=== PATIENT | male | born 1935 ===

== ENCOUNTER 2025-08-14 09:01 | Outpatient (REF) | payer BC, SELFPAY ==
[2025-08-14 13:44] LABS: Appearance Urine Clear; Glucose Urine UA >=1000 mg/dL (Negative); PH 6.0 (5.0-9.0); Specific Gravity - Urine >= 1.030 (1.005-1.025); UMIC TRIGGER UACC YES
[2025-08-14 13:56] LABS: MANUAL DIFF FLAG NO
[2025-08-14 14:01] LABS: Hematocrit 38.1 % (42.0-52.0); Hemoglobin 11.9 g/dl (14.0-18.0); Imm Gran Abs Auto 0.02 X10*3/uL (0.00-0.03); Imm Gran Pct Auto 0.2 % (0.0-0.4); Lymphocytes Absolute Auto 2.2 X10*3/uL (1.2-4.9); Mean Corpuscular HGB Conc 31.2 g/dl (31.0-36.0); Mean Corpuscular Hemoglobin 29.0 pg (27.0-33.0); Mean Corpuscular Volume 92.9 fL (80.0-98.0); NRBC Abs Auto 0.000 X10*3/uL (0.0-0.012); NRBC Pct Auto 0.0 /100WBC (0.0-0.2); Platelet Count 295 X10*3/uL (160-400); Red Blood Count 4.10 X10*6/uL (4.60-5.80); UACC Culture Trigger YES; White Blood Count 8.3 X10*3/uL (4.8-10.8)
[2025-08-14 14:12] LABS: Alanine Aminotransferase 41 U/L (0-40); Albumin Level 4.6 g/dL (3.5-5.0); Alkaline Phosphatase 61 U/L (39-117); Anion Gap 10 (12-20); Aspartate Amino Transferase 32 U/L (5-37); Blood Urea Nitrogen 23 mg/dL (9-16); Calcium 9.7 mg/dL (8.4-10.2); Carbon Dioxide 27 mmol/L (22-29); Chloride 115 mmol/L (96-108); Cholesterol 149 mg/dL (<200); Estimated Glomerular Filt Rate 47; HDL Cholesterol 44 mg/dL (>40); Magnesium 2.3 mg/dL (1.6-2.6); Potassium 4.1 mmol/L (3.3-5.1); Sodium 148 mmol/L (135-145); Total Protein 8.5 g/dL (6.5-8.0); Triglycerides 75 mg/dL (<150)
[2025-08-14 14:48] LABS: Hemoglobin A1C 150.3702 umol/L
[2025-08-14 14:49] LABS: Folate 9.1 ng/mL (> or = 4.0); Vitamin B12 424 pg/mL (200-900)
[2025-08-15 03:33] LABS: HBS Num1 1.01 mIU/mL (0-7.99); HBsAGNum1 0.43 S/CO (0.00-0.99); HIV Num 1 0.15 S/CO (0.00-0.99); Hepatitis B Surface Antigen Negative (Negative); ~HepC Num1 0.10 S/CO (0.00-0.79); ~Hepatitis B Surface Antibody NONREACTIVE (Nonreactive); ~Hepatitis C Antibody Nonreactive (Nonreactive)
[2025-08-18 14:04] LABS: VITAMIN D (1,25 OH) D3 22 pg/mL; Vit D (1,25-Dihydroxy) Total 22 pg/mL (18-72); Vitamin D (1,25 OH) D2 <8 pg/mL
== END 2025-08-14 09:02 | disposition home or self-care (01) ==
LOC: HO.HKASLDS 09:01
PROVIDERS: PCP Student in an Organized Health Care Education/Training Program; Visit Provider Student in an Organized Health Care Education/Training Program
DX: E11.40 Type 2 diabetes mellitus with diabetic neuropathy, unspecified (principal); G30.9 Alzheimer's disease, unspecified; F02.80 Dementia in other diseases classified elsewhere, unspecified severity, without behavioral disturbance, psychotic disturbance, mood disturbance, and anxiety; N40.0 Benign prostatic hyperplasia without lower urinary tract symptoms; K64.9 Unspecified hemorrhoids; E03.9 Hypothyroidism, unspecified; L60.2 Onychogryphosis; L85.8 Other specified epidermal thickening; R63.4 Abnormal weight loss; R63.0 Anorexia; K64.4 Residual hemorrhoidal skin tags; F05 Delirium due to known physiological condition; E53.8 Deficiency of other specified B group vitamins; Z85.038 Personal history of other malignant neoplasm of large intestine
CPT/HCPCS: 36415; 80053; 80061; 81001; 82607; 82652; 82746; 83036; 83735; 84443; 85025; 86706; 86803; 87086; 87340; 87389; 96127

== ENCOUNTER 2025-08-14 09:01 | Outpatient (AMB) | payer BC, SELFPAY ==
--- NOTE | 2025-08-14 09:23 | A.OFFPC_ITS ---
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: No Accompanied by: Daughter Allergies No Known Allergies Allergy (Verified 08/14/25 09:42) Tobacco use date assessed: 08/14/25 Fall risk assessment: No Falls in past year Dental Screening Dental Screen Date: 08/14/25 Did you have a dental visit in the last 12 months?: Yes Did you have a dental problem in the last 6 months where you did not have access to dental care?: Yes Was dental information given to patient?: Patient has dentist HPI HPI Comments History of Present Illness Details Consent Patient was informed and verbally consented to the use of an ambient scribe for clinic note documentation during this visit. History of Present Illness The patient is an 89-year-old male presenting with the primary reason for the visit being to establish care and manage chronic conditions including Alzheimer's disease, Type 2 Diabetes Mellitus, and dementia. Alzheimer's disease: Alzheimer's disease has been a gradual onset condition, associated with age, and has not been linked to any strokes. The patient was previously under the care of a neurologist in [place], consider neurology referral Type 2 Diabetes Mellitus: The patient has a history of Type 2 Diabetes Mellitus, managed with medications including Jardiance and Janumet. Peripheral neuropathy has developed as a complication of diabetes, increasing the risk for diabetic foot ulcers. Dementia: Dementia has been a progressive condition, with symptoms of confusion particularly noted in the evening, indicative of sundowning syndrome. The patient experiences significant nocturnal confusion, requiring assistance to return to bed. History of colon cancer: The patient underwent chemotherapy and radiation therapy for colon cancer approximately four to five years ago, with no surgical intervention reported. Benign prostatic hyperplasia: The patient is on tamsulosin for benign prostatic hyperplasia, following a previous episode requiring catheterization due to urinary retention. Peripheral neuropathy: Peripheral neuropathy is present, more pronounced on the right foot, and is a complication of diabetes. External hemorrhoid: An external hemorrhoid was identified during the examination, with consideration for potential in-office banding or referral to gastroenterology for further management. Medications: - Jardiance for Type 2 Diabetes Mellitus - Janumet for Type 2 Diabetes Mellitus - Donepezil for Alzheimer's disease - Tamsulosin for benign prostatic hyperp lasia - Levothyroxine for thyroid management - Madison-3 supplements - Quetiapine for mood stabilization - Trazodone for sleep aid - Vitamin C supplement Social History: - The patient was a former drinker but h as no history of smoking. - The patient is encouraged to walk with a cane and avoid prolonged sitting to prevent skin ulcers. - The patient receives sunlight exposure for vitamin D and is encouraged to remain active. Review of Systems - Neurological: Reports confusion and no cturnal disorientation, particularly in the evening. - Gastrointestinal: Reports blood on tis sachi, likely due to hemorrhoid. 10-point ROS reviewed and negative excep t as noted in HPI Past Medical History - Alzheimer's disease - Type 2 Diabetes Mellitus - Dementia - History of colon cancer, treated with chemotherapy and radiation - Benign prostatic hyperplasia - Peripheral neuropathy Health Maintenance - Encouraged to maintain physical activi ty to prevent skin ulcers and promote overall health. - Sunlight exposure recommended for cynthia min D synthesis. Physical Exam General: Well-appearing, in no acute distress. Vital signs: Within normal limits. HEENT: Normocephalic, atraumatic. PERRLA, EOMI. Conjunctiva clear, sclera anicteric. Oropharynx clear, mucous membranes moist. TMs intact bilaterally. Neck: Supple, no lymphadenopathy, no thyromegaly, no JVD or carotid bruits. Cardiovascular: RRR, normal S1/S2, no murmurs, rubs, or gallops. Peripheral pulses 2+ and symmetric. No edema. Respiratory: Lungs clear to auscultation bilaterally, no wheezes, rales, or rhonchi. Normal effort. Abdomen: Soft, non-tender, non-distended. Normoactive bowel sounds. No hepatosplenomegaly, no masses. MSK: Full range of motion, no joint swelling or deformity. Normal gait. Uses a cane for walking, granddaughter provided a wheelchair, but prefers to walk to avoid prolonged sitting. Skin: Warm, dry, intact. No rashes, lesions, or pallor. Toenails difficult to cut, referral to podiatry made. Band-Aid on toe due to a stubbed toe. Neuro: Alert and oriented x3. Cranial nerves II-XII intact. Strength 5/5 throughout. Sensation intact. Reflexes 2+ symmetric. Normal coordination and gait. Peripheral neuropathy noted due to diabetes. Psych: Appropriate mood and affect. Normal judgment and insight. Plan 1. Alzheimer's Disease - Continue current management with donep ezil and monitor cognitive function. mini cog performed scored less than 3 2. Type 2 Diabetes Mellitus - Order lab tests including hemoglobin A 1c to assess glycemic control. - Adjust medications based on lab result s and clinical assessment. 3. Dementia - Monitor for progression of symptoms an d adjust care as needed. 4. History Of Colon Cancer - No current oncological follow-up requi red as per previous assessments. 5. Benign Prostatic Hyperplasia - Evaluate the necessity of continuing t amsulosin based on urinary symptoms. 6. Peripheral Neuropathy - Monitor for signs of diabetic foot ulc ers and educate on foot care. 7. External Hemorrhoid - Consider referral to gastroenterology for potential in-office banding procedure. 8. Hypothyroid Continue current medication check TSH free T4 levels Discussion Notes During the visit, we discussed the management of the patient's chronic conditions, including Alzheimer's dementia, Type 2 Diabetes Mellitus, I explained the importance of monitoring blood glucose levels and adjusting medica tions based on lab results. We also talked about the potential need for gastroenterology referral for hemorrhoid management. The patient and caregiver were advised on the importance of maintaining physical activity and sunlight exposure for overall health. Patient Instructions - Continue current medications as prescr ibed. - Maintain physical activity and avoid p rolonged sitting to prevent skin ulcers. - Ensure regular sunlight exposure for v itamin D. - Monitor blood glucose levels as advise d. - Follow up in two weeks for lab results and medication review. Medical Decision Making In managing this patient, I focused on the chronic conditions of Alzheimer's disease, Type 2 Diabetes Mellitus, and dementia. The goal is to maintain cognitive function and glycemic control while preventing complications such as diabetic foot ulcers. I decided to order comprehensive lab tests to guide medication adjustments and consider a gastroenterology referral for hemorrhoid management. The patient's age and overall health were considered in the decision-making process, emphasizing non-invasive management strategies where possible. Total time spent caring for the patient today was 30 minutes. This includes time spent before the visit reviewing the chart, time spent documenting, and time spent reviewing laboratory results, diagnostic imaging, medications, performing a medically necessary evaluation, counseling on diagnoses, care coordination, ordering appropriate tests, ordering appropriate medications. [facility] Medical History (Updated 08/14/25 @ 11:50 by Valdemar Martinez MD) Weight loss Decreased appetite Hemorrhoids Subungual hyperkeratosis Onychauxis Family History (Updated 08/14/25 @ 09:24 by Iván Enriquez MA) Father No problems noted. Mother No problems noted. Social History Housing: House Patient Tobacco Use Status: Never used Tobacco service: No Current occupational status: retired Cognitive needs: Yes Hearing needs: No Vision needs: Yes (reading glasses) Questionnaire PHQ-9 Over the last 2 weeks, how often have you been bothered by any of the following problems? 1. Little interest or pleasure in doing things: not at all 2. Feeling down, depressed, or hopeless: not at all 3. Trouble falling or staying asleep, or sleeping too much: not at all 4. Feeling tired or having little energy: more than half the days 5. Poor appetite or overeating: not at all 6. Feeling bad about yourself - or that you are a failure or have let yourself or your family down: not at all 7. Trouble concentrating on things, such as reading the newspaper or watching television: not at all 8. Moving or speaking so slowly that other people could have noticed. Or the opposite - being so fidgety or restless that you have been moving around a lot more than usual: several days 9. Thoughts that you would be better off or of hurting yourself in some way: not at all Total score: 3 Source: Developed by Drs. Juan Henderson, Peggy Guajardo, Steve Rashid and colleagues, with an educational blake from [employer]. Thrive Questionnaire Date Thrive assessed: 08/13/25 I am a: Patient What is your living situation today?: I have a steady place to live Within the past 12 months, did the food you bought not last and you didn't have the money to get more?: Never true Within the past 12 months, did you worry whether your food would run out before you got money to buy more?: Never true Do you have trouble paying for medicines?: No Do you have trouble getting transportation to medical appointments?: No Do you have trouble paying your heating and electricity bill?: No Do you have trouble with day-to-day activities such as bathing, preparing meals, shopping, managing finances, etc.?: No Are you currently unemployed and looking for a job?: No Are you interested in more education?: No Please select the resources that you would like help with: None Currently or been in a relationship where the following occur: No concerns reported THRIVE Score: 0 AUDIT C Alcohol Use Questionnaire (AUDIT-C) 1. How often do you have a drink containing alcohol?: Never 2. How many drinks containing alcohol do you have on a typical day when you are drinking?: 1 or 2 3. How often do you have six or more drinks on one occasion?: Never Total Score: 0 JOSEF-7 AMB Questionnaire JOSEF-7 Date JOSEF - 7 assessed: 08/14/25 Feeling nervous, anxious, or on edge: 0 = Not at all Not being able to stop or control worryin = Not at all Worrying too much about different things: 0 = Not at all Trouble relaxin = Not at all Being so restless that it is hard to sit still: 0 = Not at all Becoming easily annoyed or irritable: 0 = Not at all Feeling afraid as if something awful might happen: 0 = Not at all Total JOSEF-7 score (0-4 normal; 5-9 mild; 10-14 moderate; 15-21 severe): 0 Source: Developed by Drs. Juan Henderson, Peggy Guajardo, Steve Rashid and colleagues, with an educational blake from [employer]. Physical exam (Primary Care) Vital Signs: Last Vital Signs Temp 97.8 F 08/14/25 09:40 Pulse 74 08/14/25 09:40 Resp 16 08/14/25 09:40 BP 126/60 08/14/25 09:40 BMI result Body Mass Index 20.5 Tobacco/Smoking Status: Tobacco use Status Tobacco use date assessed 08/14/25 08/14/25 09:24 Patient Tobacco Use Status Never used Tobacco 08/14/25 09:24 PHQ-9: PHQ-9 Score PHQ-9: Total score 3 08/14/25 09:24 Thrive Assessment: Date of Thrive Assessment Date Thrive assessed 08/13/25 08/14/25 09:24 Currently or been in a relationship where the following occur: No concerns r eported Coding Level of Care Code New Pt Level 4 (53125) Diagnoses Alzheimer's dementia G30.9; F02.80 Diabetes type 2 E11.9 Hypothyroid E03.9 Peripheral neuropathy G62.9 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 Hemorrhoids K64.9 Weight loss R63.4 Decreased appetite R63.0 History of colon cancer Z85.038 Benign prostatic hyperplasia N40.0 External hemorrhoid K64.4 Sundowning F05 Sleep difficulties G47.9 Assessment & Plan Assessment & Plan (1) Alzheimer's dementia: Code(s): G30.9 - Alzheimer's disease, unspecified; F02.80 - Dementia in other diseases classified elsewhere, unspecified severity, without behavioral disturbance, psychotic disturbance, mood disturbance, and anxiety (2) Diabetes type 2: Code(s): E11.9 - Type 2 diabetes mellitus without complications (3) Hypothyroid: Code(s): E03.9 - Hypothyroidism, unspecified (4) Peripheral neuropathy: Code(s): G62.9 - Polyneuropathy, unspecified (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: Medical (6) Subungual hyperkeratosis: Code(s): L85.8 - Other specified epidermal thickening Category: Medical (7) Hemorrhoids: Code(s): K64.9 - Unspecified hemorrhoids Category: Medical (8) Weight loss: Code(s): R63.4 - Abnormal weight loss Category: Medical (9) Decreased appetite: Code(s): R63.0 - Anorexia Category: Medical (10) History of colon cancer: Code(s): Z85.038 - Personal history of other malignant neoplasm of large intestine (11) Benign prostatic hyperplasia: Code(s): N40.0 - Benign prostatic hyperplasia without lower urinary tract symptoms (12) External hemorrhoid: Code(s): K64.4 - Residual hemorrhoidal skin tags (13) Sundowning: Code(s): F05 - Delirium due to known physiological condition (14) Sleep difficulties: Code(s): G47.9 - Sleep disorder, unspecified Plan Orders: Orders Comprehensive Met. Panel Today Z13.9 - Encounter for screening, unspecified Hemoglobin A1c Today Z13.9 - Encounter for screening, unspecified Hepatitis B Surface Antibody Today Z13.9 - Encounter for screening, unspecified HIV Ab/Ag Today Z13.9 - Encounter for screening, unspecified Lipid Panel Today Z13.9 - Encounter for screening, unspecified Magnesium Today Z13.9 - Encounter for screening, unspecified TSH reflex Free T4 Today Z13.9 - Encounter for screening, unspecified UA CC w/rflx Micro + Cult Today Z13.9 - Encounter for screening, unspecified Vitamin B12 and Folate Today Z13.9 - Encounter for screening, unspecified Complete Blood Count Auto Diff Today Z13.9 - Encounter for screening, unspecified Hepatitis B Surface Antigen Today Z13.9 - Encounter for screening, unspecified Hepatitis C Antibody Today Z13.9 - Encounter for screening, unspecified Vitamin D 1,25 dihydroxy Today Z13.9 - Encounter for screening, unspecified Referrals Nurse Navigator Referral R63.0 - Anorexia, R63.4 - Abnormal weight loss Gastroenterology Referral K64.9 - Unspecified hemorrhoids Podiatry Referral L60.2 - Onychogryphosis, L85.8 - Other specified epidermal thickening
[2025-08-14 09:40] VITALS: BP 126/60; PULSE 74; RESP 16; TEMP 36.6; BMI 20.5
== END 2025-08-14 10:58 | disposition home or self-care (01) ==
LOC: HO.HMCFMS 09:02
PROVIDERS: PCP Student in an Organized Health Care Education/Training Program; Visit Provider Student in an Organized Health Care Education/Training Program
DX: E11.42 Type 2 diabetes mellitus with diabetic polyneuropathy (principal); G30.9 Alzheimer's disease, unspecified; F02.80 Dementia in other diseases classified elsewhere, unspecified severity, without behavioral disturbance, psychotic disturbance, mood disturbance, and anxiety; G62.9 Polyneuropathy, unspecified; E03.9 Hypothyroidism, unspecified; L60.2 Onychogryphosis; L85.8 Other specified epidermal thickening; K64.9 Unspecified hemorrhoids; R63.4 Abnormal weight loss; R63.0 Anorexia; Z85.038 Personal history of other malignant neoplasm of large intestine; N40.0 Benign prostatic hyperplasia without lower urinary tract symptoms

== ENCOUNTER 2025-08-28 12:59 | Outpatient (AMB) | payer BC, SELFPAY ==
--- NOTE | 2025-08-28 13:02 | MHC.PC.OV ---
Vital Signs 08/28/25 13:10 Height 5 ft 4.57 in Weight 123 lb 4 oz BMI 20.8 BP 121/56 L Blood Pressure Location Lt brachial Position Sitting Respiration 14 Pulse 97 Pulse Source Monitor Temp 97.4 F Temp Source Oral Pulse Oximetry (%) 98 Oxygen Delivery Method Room Air Intake Visit Reasons: 2 wk f/u Intake Note: 2 wk f/u Athletic Instructor Required: No Accompanied by: son in law Allergies No Known Allergies Allergy (Verified 08/14/25 09:42) Tobacco use date assessed: 08/14/25 Fall risk assessment: 2 + Falls in past year Last assessed Fall Risk: 08/28/25 Dental Screening Dental Screen Date: 08/14/25 HPI HPI Comments History of Present Illness Details History of Present Illness The patient is an 89-year-old male presenting for a follow-up to review comprehensive lab test results. Type 2 Diabetes Mellitus: The patient was newly diagnosed with type 2 diabetes mellitus following lab results that indicated a hemoglobin A1c of 6.5% and a random glucose of 156 mg/dL. He is currently managed on oral diabetic medications, including Jardiance and Janumet. He does not report any acute diabetic symptoms and exercises fairly good glycemic control, as indicated by the lab results. Chronic Kidney Disease, Stage 3A: The patient's chronic kidney disease is classified as stage 3A, with an estimated GFR of 47 mL/min/1.73 m?? and an elevated creatinine of 1.43 mg/dL. The patient has known diabetes which could contribute to the progression of his renal disease. History includes discussions of potential renal impacts related to diabetes management, but he currently does not report symptoms directly attributable to renal dysfunction. Normocytic Anemia: Recorded laboratory findings indicated low RBC count, hemoglobin, and hematocrit, potentially due to chronic blood loss from hemorrhoids. Although there are no overt signs of acute blood loss, the anemia is suggested to be longstanding. The anemia was previously unmanaged due to constipation issues with prior iron supplementation. Vitamin D Deficiency: Recent lab results revealed mildly low vitamin D levels. Although the patient remains asymptomatic from the deficiency perspective, a supplement has been discussed to prevent further drop and related conditions. Hemorrhoids: Patient has a known history of hemorrhoids, for which a gastroenterology referral has been provided. Previous bleeding patterns due to hemorrhoids possibly contribute to his chronic anemia, as discussed. Surgical History: - Routine surgical procedures, if any, are not documented in the current records. Medications: - Jardiance (empagliflozin) for type 2 diabetes mellitus - Janumet (combination of metformin and sitagliptin) for type 2 diabetes mellitus - Donepezil for cognitive impairment - Tamsulosin for benign prostatic hyperplasia - Levothyroxine for thyroid function - [place]-3 supplements - Quetiapine for mood stabilization - Trazodone for sleep disturbances - Vitamin C with iron supplementation plan Social History: - No significant social determinants of health discussed during this visit. Family History: - Presence of chronic kidney disease in the patient???s spouse Diagnostic Results: - Labs: Hemoglobin A1c at 6.5%, Creatinine 1.43 mg/dL, BUN 23 mg/dL, eGFR 47, Sodium 148 mmol/L, ALT 41 U/L, Vitamin D mildly low, WBC normal, RBC low, Hemoglobin low, Hematocrit low, MCV normal. - Tests and Diagnostics: Negative screenings for Hepatitis B, Hepatitis C, and HIV. Elevated glucose, leukocyte esterase and RBCs noted in urinalysis. Past Medical History - Type 2 Diabetes Mellitus - Chronic Kidney Disease, Stage 3A - Normocytic anemia - Hemorrhoids - Possible Vitamin D deficiency Health Maintenance - Updated labs including CBC, CMP, Lipid panel, and thyroid studies - Screening and negative tests for Hepatitis B, Hepatitis C, and HIV - Discussion of cardiovascular risk management including initiation of statin. [facility] Medical History (Updated 08/28/25 @ 15:23 by Valdemar Martinez MD) Dementia Vitamin D3 deficiency Normocytic anemia Kidney disease, chronic, stage III (GFR 30-59 ml/min) Diabetes type 2 Weight loss Decreased appetite Hemorrhoids Subungual hyperkeratosis Onychauxis Family History Father No problems noted. Mother No problems noted. Social History Housing: House Patient Tobacco Use Status: Never used Tobacco service: No Current occupational status: retired Cognitive needs: Yes Hearing needs: No Vision needs: Yes (reading glasses) Questionnaire Thrive Questionnaire Date Thrive assessed: 08/13/25 I am a: Patient What is your living situation today?: I have a steady place to live Within the past 12 months, did the food you bought not last and you didn't have the money to get more?: Never true Within the past 12 months, did you worry whether your food would run out before you got money to buy more?: Never true Do you have trouble paying for medicines?: No Do you have trouble getting transportation to medical appointments?: No Do you have trouble paying your heating and electricity bill?: No Do you have trouble taking care of your child, family member or friend?: No Do you have trouble with day-to-day activities such as bathing, preparing meals, shopping, managing finances, etc.?: No Are you currently unemployed and looking for a job?: No Are you interested in more education?: No Please select the resources that you would like help with: None Currently or been in a relationship where the following occur: No concerns reported THRIVE Score: 0 JOSEF-7 AMB Questionnaire JOSEF-7 Date JOSEF - 7 assessed: 08/14/25 Source: Developed by Drs. Juan Henderson, Peggy Guajardo, Steve Rashid and colleagues, with an educational blake from [email or web address]. Review of Systems Narrative Review of Systems - Hematologic: Denies spontaneous or unexplained bleeding. - Renal: Reports no urinary changes but acknowledges known chronic kidney disease. - Endocrine: Denies acute symptoms of hyper- or hypoglycemia; Admits to stable management of diabetes. - Musculoskeletal: Denies musculoskeletal pain or weakness. - Neurological: Denies dizziness, seizures or other neurological symptoms. 10-point ROS reviewed and negative except as noted in HPI Physical exam (Primary Care) Vital Signs: Last Vital Signs Temp 97.4 F 08/28/25 13:10 Pulse 97 08/28/25 13:10 Resp 14 08/28/25 13:10 BP 121/56 L 08/28/25 13:10 Pulse Ox 98 08/28/25 13:10 Oxygen Delivery Method Room Air 08/28/25 13:10 BMI result Body Mass Index 20.8 Tobacco/Smoking Status: Tobacco use Status Tobacco use date assessed 08/14/25 08/28/25 13:03 Patient Tobacco Use Status Never used Tobacco 08/28/25 13:03 Thrive Assessment: Date of Thrive Assessment Date Thrive assessed 08/13/25 08/28/25 13:03 Currently or been in a relationship where the following occur: No concerns reported Narrative Physical Exam General: Well-appearing, in no acute distress. Vital signs: Within normal limits. HEENT: Normocephalic, atraumatic. PERRLA, EOMI. Conjunctiva clear, sclera anicteric. Oropharynx clear, mucous membranes moist. TMs intact bilaterally. Neck: Supple, no lymphadenopathy, no thyromegaly, no JVD or carotid bruits. Cardiovascular: RRR, normal S1/S2, no murmurs, rubs, or gallops. Peripheral pulses 2+ and symmetric. No edema. Respiratory: Lungs clear to auscultation bilaterally, no wheezes, rales, or rhonchi. Normal effort. Abdomen: Soft, non-tender, non-distended. Normoactive bowel sounds. No hepatosplenomegaly, no masses. MSK: Full range of motion, no joint swelling or deformity. Normal gait. Skin: Warm, dry, intact. No rashes, lesions, or pallor. Neuro: Alert and oriented x3. Cranial nerves II-XII intact. Strength 5/5 throughout. Sensation intact. Reflexes 2+ symmetric. Normal coordination and gait. Psych: Appropriate mood and affect. Normal judgment and insight. Coding Level of Care Code Est Pt Level 4 (36892) Diagnoses Diabetes type 2 E11.9 Kidney disease, chronic, stage III (GFR 30-59 ml/min) N18.30 Normocytic anemia D64.9 Vitamin D3 deficiency E55.9 Hemorrhoids K64.9 Dementia F03.90 Assessment & Plan Assessment & Plan (1) Diabetes type 2: Code(s): E11.9 - Type 2 diabetes mellitus without complications Category: Medical (2) Kidney disease, chronic, stage III (GFR 30-59 ml/min): Code(s): N18.30 - Chronic kidney disease, stage 3 unspecified Category: Medical (3) Normocytic anemia: Code(s): D64.9 - Anemia, unspecified Category: Medical (4) Vitamin D3 deficiency: Code(s): E55.9 - Vitamin D deficiency, unspecified Category: Medical (5) Hemorrhoids: Code(s): K64.9 - Unspecified hemorrhoids Category: Medical (6) Dementia: Code(s): F03.90 - Unspecified dementia, unspecified severity, without behavioral disturbance, psychotic disturbance, mood disturbance, and anxiety Category: Medical Plan Consent Discussed with the patient the need for supplementary iron and vitamin D as part of his medical care to address identified deficiencies. The benefits of these supplements include improvement in anemia and prevention of vitamin D deficiency-related conditions. The risks of iron supplementation include potential gastrointestinal side effects such as constipation, for which MiraLAX has been suggested as management. The patient was informed of the need for statin therapy to reduce cardiovascular risk, which is well-documented in individuals with diabetes, highlighting that constipated issues were previously encountered with iron usage, supplemental options including MiraLAX and vitamin C were discussed to minimize these effects and improve absorption. Consent obtained to initiate these treatments. Patient was informed and verbally consented to the use of an ambient scribe for clinic note documentation during this visit. Plan 1. Type 2 Diabetes Mellitus - Continue Jardiance and Janumet therapy. - Monitor A1c and glucose levels for management of diabetes. - Discuss potential need for statins to lower cardiovascular risks due to diabetes. 2. Chronic Kidney Disease, Stage 3A - Maintain current diabetes management to prevent further decline in kidney function. - Monitor renal function regularly. 3. Anemia - Initiate iron supplementation with vitamin C to improve absorption. - Prescribe MiraLAX to counteract potential constipation. - Monitor hemoglobin and hematocrit levels. 4. Vitamin D Deficiency - Prescribe weekly vitamin D supplementation. - Monitor vitamin D levels as indicated. 5. Hemorrhoids - Follow up on gastroenterology referral for hemorrhoid treatment. - Address potential anemia associated with hemorrhoidal bleeding. Discussion Notes I reviewed the lab results, emphasizing the necessity of better management of diabetes to prevent advancement of renal disease and improve cardiovascular health, in light of the patient's new diabetes diagnosis. The need for supplemental treatment for vitamin D deficiency and anemia was explained, underscoring the gastrointestinal side effects commonly associated with oral iron therapy. Discussions were also held regarding statin therapy to manage lipid levels and reduce the risk of cardiovascular incidents, considering diabetes as a major risk factor. The patient was informed of the rationale behind each treatment and potential side effects. Patient agreed to follow up with the gastroenterology referral provided previously for hemorrhoid management. Follow-up labs for A1c, complete renal panel, and anemia markers will be planned after three months. Patient Instructions - Take prescribed iron and vitamin C supplements as directed. - Use MiraLAX if constipated. - Continue current medications for diabetes as prescribed. - Begin vitamin D supplements weekly. - Follow up with gastroenterology. - Monitor blood glucose levels regularly at home. - Return for any new symptoms or treatment concerns. Medical Decision Making The patient's clinical picture of newly diagnosed type 2 diabetes mellitus and stage 3A chronic kidney disease required engagement in multifactorial management strategies to mitigate further organ damage. Initiation of a statin was deemed essential given the increased risk for cardiovascular disease in diabetic patients. Iron supplementation, paired with vitamin C to enhance absorption, alongside MiraLAX, was chosen to address the anemia while counterbalancing potential gastrointestinal side effects from iron. The need for ongoing monitoring, based on his chronic illnesses and recent lab findings, supports follow-up visits to assess response to interventions and adjust treatment regimens accordingly. Careful consideration was given to the patient's current medication regimens to avoid potential drug-drug interactions and ensure adherence. Total time spent caring for the patient today was 20 minutes. This includes time spent before the visit reviewing the chart, time spent documenting, and time spent reviewing laboratory results, diagnostic imaging, medications, performing a medically necessary evaluation, counseling on diagnoses, care coordination
[2025-08-28 13:10] VITALS: BP 121/56; PULSE 97; RESP 14; TEMP 36.3; O2SAT 98; BMI 20.8
== END 2025-08-28 13:34 | disposition home or self-care (01) ==
LOC: HO.HMCFMS 13:00
PROVIDERS: PCP Student in an Organized Health Care Education/Training Program; Visit Provider Student in an Organized Health Care Education/Training Program
DX: E11.9 Type 2 diabetes mellitus without complications (principal); N18.30 Chronic kidney disease, stage 3 unspecified; D64.9 Anemia, unspecified; E55.9 Vitamin D deficiency, unspecified; K64.9 Unspecified hemorrhoids; F03.90 Unspecified dementia, unspecified severity, without behavioral disturbance, psychotic disturbance, mood disturbance, and anxiety

== ENCOUNTER 2025-10-03 13:05 | Outpatient (AMB) | payer BC, SELFPAY ==
--- OUTSIDE RECORDS SUMMARY | 2013-04-05 19:00 | XMS_ITS | Continuity of Care Document ---
Author Organization [facility] Address [address] [place] [address] Phone Care Team Providers Care Regulatory Associate Name Role Phone RCM, Rendering Unavailable Unavailable Allergies, Adverse Reactions, Alerts Substance Reaction Status Criticality No Known Drug Allergies Active No I nformation Advance Directives Directive Yes / No Effective Date File Name No Information Encounters Encounter Description Practice Location Reason(s) For Visit Diagnoses Date Provider Providers Copied on Encounter [facility] , [address] [place] [address], [id number], [place] tel:[phone] [facility] Location No Information RCM Rendering. [facility] [place], [address], [place]. tel:[phone] Family History Family Member Type Diagnosis Age At Onset No Information Payers Payer name Insurance type Covered libertarian ID Authoriza tion(s) No Information Social History Type Description Quantity Date Captured Comments Sex Male Smoking Status No Information Chief Complaint And Reason For Visit No Information Reason For Referral Reason For Referral No Information History Of Present Illness Encounter Date Complaint History Of Prese nt Illness No Information Functional Status Date Functional Assessmen t No Information Instructions Date Instruction Additional Infor mation No Information Assessments Type Assessment Date No Information Patient Care Teams Name Effective Dates (start - stop) Status Members No Information
[2025-10-03 13:37] VITALS: BMI 21.1
--- NOTE | 2025-10-03 13:37 | A.OFFVIS_ITS ---
Vital Signs 10/03/25 13:37 Height 5 ft 4.5 in Weight 125 lb BMI 21.1 Intake Visit Reasons: Diabetic foot care Intake Note: Dennis is an 89 year old male who presents to the office today as a new patient visit for Diabetic foot care referred by his PCP Dr. Martinez. Pt daughter states patient will not let his peers check his sugars however as of 08/14/24 his last glucose was 156 and his A1c was 6.5%. Patient experiences numbness and tingling in both feet with no burning. Patient denies any previous history of injuries or wounds to his feet. He experiences low back pain without injuries. Allergies No Known Allergies Allergy (Verified 08/14/25 09:42) HPI Comments Details: Chief Complaint Annual diabetic foot evaluation. The patient's caregiver reports numbness and tingling in his feet and concerns about a painful toenail on one foot that is digging into the adjacent toe. History of Present Illness The patient is an 89 year old male presenting for his first podiatry visit for evaluation of his feet. He is diabetic and experiences numbness and tingling in his feet, without associated burning sensations. His daughter who is his caregiver reports that his right foot has been difficult to manage, with his 2nd toenail digging into his adjacent toe, causing pain when she attempts to treat it. He previously had swelling in his legs, which resolved after he began elevating his feet in a recliner. The patient has a history of dementia with Alzheimer's disease, diagnosed approximately 10 years ago. This condition causes confusion, forgets he has just used the bathroom, and frequent awakenings at night. He is on trazodone 0.75 for sleep. He requires assistance with activities of daily living, including showering and dressing. Medical History: - Dementia with Alzheimer's disease, diagnosed approximately 10 years ago. - Diabetes mellitus - Kidney disease - Sleep disturbance, with frequent nocturnal awakenings and confusion. - History of peripheral edema, resolved with foot elevation. Medications: - Trazodone 0.75 for sleep. - Tebn-agd-ffohula antibacterial cream, applied to toenails by caregiver. Social History: - Housing and Support: He recently relocated from [place] to live with his caregiver. - Functional Status: Requires assistance with activities of daily living, including showering and dressing. - Level of activity: Tries to walk and is brought outside when the weather permits. [facility] Medical History (Updated 10/03/25 @ 14:07 by Rhys Larios DPM) Dementia Vitamin D3 deficiency Normocytic anemia Kidney disease, chronic, stage III (GFR 30-59 ml/min) Diabetes type 2 Weight loss Decreased appetite Hemorrhoids Subungual hyperkeratosis Onychauxis Family History Father No problems noted. Mother No problems noted. Social History Housing: House Patient Tobacco Use Status: Never used Tobacco service: No Current occupational status: retired Cognitive needs: Yes Hearing needs: No Vision needs: Yes (reading glasses) Review of Systems Const All systems reviewed & are unremarkable except as noted in HPI and below Physical Exam Exam Exam: Diagnostic results Pathology results Physical Exam - Lower Extremities: Absence of hair growth noted on toes. There is a loose toenail on the third toe. One toenail is observed to be digging into the adjacent toe. Callus is present. - Nails: Evidence of onychomycosis. Nails were debrided during the exam. Vital Signs: BMI result Body Mass Index 21.1 Extrem Other: *Bilateral Lower Extremity Focused Diabetic Foot Exam Vascular: DP/PT 1/4 bilaterally, CFT<3s to digits, TG warm to cool, no pedal edema, pedal hair absent Derm: Skin: Dry xerotic skin bilateral feet Interdigital spaces: Clear, no maceration or fungal infection. Nails: Thickened elongated dystrophic discolored toenails x 10 with subungual debris. Right 2nd digit nail with the lateral callus abutting causing abrasion to the right 3rd toe. Neuro: Protective sensation grossly diminished to bilateral lower extremities Msk: Deformities: Semi rigid flexion deformity of all digits to bilateral feet Muscle strength: 5/5 in all muscle groups. Gait: Normal, no antalgic or steppage gait observed. Footwear Assessment: Shoes inspected; appropriate fit, no excessive wear, or foreign objects noted. Office Procedures AMB Debridement /Avulsion Details: Procedure: Nail debridement Location: 10 nails, bilateral feet Anesthesia: N/A Description: The affected toenails were cleansed with an antiseptic solution. Using sterile nail nippers and a rotary isamar, dystrophic and mycotic nail material was carefully debrided and reduced in thickness. Care was taken to avoid trauma to the surrounding skin and nail bed. All debris was removed as tolerated. The area was inspected for signs of infection or ulceration. Patient tolerated the procedure well without complications. Tolerance: Patient tolerated procedure well, no immediate complications. Class B findings as per physical exam findings above. The patient has a diagnosis of diabetes mellitus and presents with elongated, thickened toenails. Due to underlying diabetic neuropathy and mild vascular disease findings, the patient is at increased risk for complications such as ulceration, infection, and difficulty with self-care. Debridement of elongated toenails is medically necessary to prevent development of pressure-related lesions, reduce risk of secondary infection, and maintain foot health in high- risk comorbidities. [id number] of Nail 6+ Procedure code (CPT) selection complete Assessment & Plan Assessment & Plan (1) Diabetes type 2: Code(s): E11.9 - Type 2 diabetes mellitus without complications Category: Medical Qualifiers: Diabetes mellitus assembler dielectric heater insulin use: without penitentiary use Diabetes mellitus complication status: with skin complications Diabetes mellitus complication detail: with other skin complication Qualified Code(s): E11.628 - Type 2 diabetes mellitus with other skin complications Plan: * Patient requires routine foot care due to his diabetes and advanced dementia * Rx Amlactin (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 * Due to the advanced nature of the onychomycosis, topical antifungal creams are unlikely to be effective. * The caregiver was advised to continue using a Band-Aid if the callus or nail causes rubbing. * Follow up in two months for routine nail care. (3) Acquired hammertoes of both feet: Code(s): M20.41 - Other hammer toe(s) (acquired), right foot; M20.42 - Other hammer toe(s) (acquired), left foot Category: Medical Plan: * Toe spacers are not recommended due to the patient's dementia, as he would likely not tolerate them. Plan Patient Instructions - A prescription for a moisturizing cream for diabetic skin will be sent to your pharmacy. - Apply this cream to the top of the feet and toes to help soften the skin and calluses. - If the toenail or callus continues to rub, you can place a Band-Aid over the area to protect it. - Please schedule a follow-up appointment in two months for routine nail care. Medications: New ammonium lactate 12% apply to both feet 1 appl topical DAILY 225 grams 3RF dry skin L85.3 - Xerosis cutis Coding Level of Care Code New Pt Level 4 (23103) Diagnoses Type 2 diabetes mellitus with other skin complication, without long-term current use of insulin E11.628 Diabetes mellitus assembler dielectric heater insulin use: without penitentiary use Diabetes mellitus complication status: with skin complications Diabetes mellitus complication detail: with other skin complication Onychogryphosis L60.2 Acquired hammertoes of both feet M20.41; M20.42 Time Spent (min) 25
== END 2025-10-03 13:59 | disposition home or self-care (01) ==
LOC: HO.HPODS 13:06
PROVIDERS: PCP Student in an Organized Health Care Education/Training Program; Visit Provider Student in an Organized Health Care Education/Training Program
DX: E11.628 Type 2 diabetes mellitus with other skin complications (principal); L60.2 Onychogryphosis; M20.41 Other hammer toe(s) (acquired), right foot; M20.42 Other hammer toe(s) (acquired), left foot
CPT/HCPCS: 99204